=== PATIENT | male | born 1995 | race Caucasian/White ===

== ENCOUNTER 2020-06-27 05:50 | Emergency (ER) | payer SELFPAY ==
[2020-06-27 05:58] VITALS: BP 145/96; PULSE 94; RESP 22; TEMP 36.8; BMI 31.1
--- NOTE | 2020-06-27 06:16 | ED_ITS ---
HPI - Dental/Oral General Chief complaint: Dental/Oral Stated complaint: HEAD PAIN Time Seen by Provider: 06/27/20 06:10 Source: patient Mode of arrival: ambulatory Limitations: no limitations History of Present Illness HPI Narrative: patient states for the past day or 2 has been having left-sided ear and jaw pain. No fevers no chills. No drooling. No neck stiffness. Denies trauma. No vision changes MD Complaint: tooth pain Location: Tooth # (18/19) Onset (ago): day(s) (2) Duration: constant Severity: moderate Severity scale (1-10): 5 Relieving factors: nothing Exacerbating factors: chewing Context: history of dental caries Related Data Previous Rx's Medication Instructions Recorded amoxicillin 875 mg PO Q12H #20 tab 06/27/20 tramadol [Ultram] 50 mg PO BID PRN #10 tab 06/27/20 Allergies Allergy/AdvReac Type Severity Reaction Status Date / Time SEASONAL ALLERGIES Allergy Mild SNEEZING Uncoded 06/13/20 16:18 RUNNY NOSE Review of Systems Review of Systems: Yes all other systems are reviewed and are negative Constitutional: Constitutional: Reports as per HPI, Denies fatigue, Denies fever(s), Denies frequent falls and Denies poor appetite ENT: Denies throat swelling Cardiovascular: Cardiovascular: Denies leg ulcers and Denies dyspnea Respiratory: Respiratory: Denies hemoptysis and Denies dyspnea Gastrointestinal: Gastrointestinal: Denies vomiting Neurologic: Denies frequent falls and Denies seizure-like activity Endocrine: Endocrine: Denies fatigue Allergic/Immunologic: Allergic/Immunologic: Denies throat swelling [facility] Past Medical History [facility] Narrative: no significant family history no significant surgical history Medical History No known health problems Social History Social History (Updated 06/27/20 @ 06:21 by Morgan Parr DO) Alcohol intake: current Alcohol intake frequency: a few times a week Smoking Status: Never smoker Smoked in Last 30 Days: No Use of substances other than those prescribed or required for medical reasons: No Advance Directives: No Advance Directives Information Provided: No Physical Exam Vital Signs and I&O and Narrative: Vital Signs and I&O: Vital Signs Temp 98.2 F 06/27/20 05:58 Pulse 94 10/01/20 05:58 Resp 22 H 06/27/20 05:58 BP 145/96 H 06/27/20 05:58 Intake & Output 06/26/20 06/27/20 06/27/20 18:59 06:59 18:59 Weight 104.326 kg Body Mass Index 31.1 Const: General: cooperative and healthy appearing Orientation/consciousness: oriented to person Limitations: no limitations HENMT: Head: Yes normal to inspection, No scalp tenderness, No Temporal artery tenderness present and No periorbital ecchymosis Ears: left TM abnormal (erythema to TM and canal. No discharge. no lac) and mastoids normal General nose exam: Normal external nose present and Abnormal external nose present Face and sinus: Yes normal facial exam Mouth: Normal oral and palatal mucosa present Teeth and gingiva: dentition normal Throat: Yes posterior oropharynx normal Eyes: General: appearance normal, both eyes and all related structures Neck: Neck: Yes normal visual inspection Chest: Chest palpation & inspection: normal inspection of the chest Resp: Effort & Inspection: normal respiratory effort Cardio: Jugular venous distension: no JVD GI: Inspection: Yes normal to inspection : General: No CVA tenderness Back/Spine/Pelvis: Back: No CVA tenderness Skin: General skin exam: no rashes or lesions noted Neuro: General: oriented to person Extrem: General: Yes normal to inspection Psych: Appearance: grossly normal Speech and movement: Normal speech and movement present Discharge Plan Discharge Clinical Impression: Toothache Otitis media Qualifiers: Otitis media type: serous Chronicity: acute Laterality: left Recurrence: non- recurrent Qualified Code(s): H65.02 - Acute serous otitis media, left ear Patient Disposition: Home, Self-Care Instructions: Toothache (ED), Serous Otitis Media (ED) Prescriptions: New amoxicillin 875 mg tablet 875 mg PO Q12H Qty: 20 RF: 0 tramadol [Ultram] 50 mg tablet 50 mg PO BID PRN (Reason: pain) Qty: 10 RF: 0 Interventions: ED Discharge Assessment Last Done: 06/27/20 07:26 Discharge Date/Time: 06/27/20 07:20
[2020-06-27] MEDS: Amoxicillin 500 MG CAPSULE PO (06:20)
--- NOTE | 2020-06-27 06:21 | PC.NURSE ---
MD at bedside. Pt medicated per [facility]AR. Pt aware of plan to DC home to f/u with a dentist. Continue to monitor.
--- NOTE | 2020-06-27 07:21 | PC.NURSE ---
pt states he has pain prescription sent for discharge
== END 2020-06-27 07:20 | disposition home or self-care (01) ==
PROVIDERS: Emergency Provider Emergency Medicine
DX: H65.02 Acute serous otitis media, left ear (principal); K08.89 Other specified disorders of teeth and supporting structures
CPT/HCPCS: 99283